=== PATIENT | female | born 1960 | race Caucasian/White ===

== ENCOUNTER → 2016-08-25 | Day surgery (SDC) | payer MEDICARE ==
[~2016-08-25] MED LIST: ALPRAZOLAM0.25 MG PO; CYMBALTA60 MG PO; IMIPRAMINE HCL50 MG PO; LISINOPRIL20 MG PO; METFORMIN HCL500 M2 PO; NAPROXEN500 MG PO; NORCO 7.5-3251 EACH PO; OMEPRAZOLE20 MG PO; PERCOCET 10-321 EACH PO; SYNTHROID150 MCG PO; TRAZODONE HCL100 MG PO; XARELTO10 MG PO; ZESTORETIC 20-1 EACH PO
[2016-08-25 11:12] LABS: HEMOGLOBIN 13.7 gm/dl (12.3-15.3); RED BLOOD COUNT 4.06 M/UL (4.00-5.10); WHITE BLOOD COUNT 7.2 K/UL (4.5-11.0)
[2016-08-25 11:26] LABS: BUN/CREATININE RATIO 13 (0-10)
== END | disposition home or self-care (01) ==
LOC: OPSV2 09:51
PROVIDERS: Orthopaedic Surgery
DX: Z01.812 Encounter for preprocedural laboratory examination (principal); Z01.810 Encounter for preprocedural cardiovascular examination; Z01.818 Encounter for other preprocedural examination; M17.11 Unilateral primary osteoarthritis, right knee; E11.9 Type 2 diabetes mellitus without complications; I10 Essential (primary) hypertension; I34.1 Nonrheumatic mitral (valve) prolapse
CPT/HCPCS: 36415; 71020; 80048; 83036; 85025; 87081; 93005

== ENCOUNTER → 2016-09-07 | Outpatient (CLI) | payer MEDICARE ==
[2016-09-07 11:07] LABS: BUN/CREATININE RATIO 9 (0-10)
== END ==
LOC: LAB 09:59
PROVIDERS: Emergency Medicine
DX: Z01.812 Encounter for preprocedural laboratory examination (principal)
CPT/HCPCS: 36415; 80048; 86850; 86900; 86901

== ENCOUNTER 2016-09-08 05:33 | Day surgery (SDC) | payer MEDICARE ==
[~2016-09-08] VITALS: Ht 157.5 cm; Wt 107.5 kg
[~2016-09-08 05:33] MED LIST changes: -LISINOPRIL20 MG PO; -PERCOCET 10-321 EACH PO; -XARELTO10 MG PO
[2016-09-08 13:55] LABS: BUN/CREATININE RATIO 13 (0-10)
[2016-09-09 06:43] LABS: BUN/CREATININE RATIO 12 (0-10)
[2016-09-09 06:45] LABS: HEMOGLOBIN 11.1 gm/dl (12.3-15.3); RED BLOOD COUNT 3.4 M/UL (4.00-5.10); WHITE BLOOD COUNT 9.8 K/UL (4.5-11.0)
[2016-09-09] MEDS ORDERED: LISINOPRIL20 MG PO (14:09)
[2016-09-09] MEDS ORDERED: XARELTO10 MG PO (14:11)
[2016-09-09] MEDS ORDERED: PERCOCET 10-321 EACH PO (14:11)
== END 2016-09-09 15:17 | disposition home or self-care (01) ==
LOC: UNDOADMIN 05:33 → ZOBSOF 05:33 → OR 05:33 → M/S 05:33 → EDSTATUS 08:15 → M/S 14:14 → ZOBSOF 14:14 → M/S 09-09 15:17 → OR 09-09 15:17
PROVIDERS: Orthopaedic Surgery; Physician Assistant
PROC: 0SRC0J9 Replacement of Right Knee Joint with Synthetic Substitute, Cemented, Open Approach (ICD-10-PCS; principal; 2016-09-08 08:15)
DX: M17.11 Unilateral primary osteoarthritis, right knee (principal); E87.1 Hypo-osmolality and hyponatremia; Z68.41 Body mass index [BMI] 40.0-44.9, adult; I10 Essential (primary) hypertension; E11.9 Type 2 diabetes mellitus without complications; E66.01 Morbid (severe) obesity due to excess calories; E03.9 Hypothyroidism, unspecified; F41.9 Anxiety disorder, unspecified; F32.9 Major depressive disorder, single episode, unspecified; K21.9 Gastro-esophageal reflux disease without esophagitis; Z72.0 Tobacco use; Z79.84 Long term (current) use of oral hypoglycemic drugs; Z79.899 Other long term (current) drug therapy; Z88.5 Allergy status to narcotic agent; Z96.652 Presence of left artificial knee joint
CPT/HCPCS: 36415; 73560; 80048; 82962; 84439; 84443; 85025; 97116; 97530; 97535; C1713; J0690; J1100; J1885; J2250; J2405; J2710; J2765; J2795; J3010; J7030; J7120